=== PATIENT | male | born 1980 | race Caucasian/White ===

== ENCOUNTER → 2018-06-08 14:22 | Outpatient (CLI) | payer OTHER, MEDICAID, SELFPAY ==
--- NOTE | 2018-06-08 | DI.RAD.S_ITS ---
PROCEDURE: XR HAND RT MIN 3V INDICATIONS: RT HAND INJURY, HX OF FRACTURE X 2 TECHNIQUE: 3 views of the hand(s) acquired. COMPARISON: RG, XR HAND 3V RT, 07/14/2006, 14:47. RG, XR HAND 3V RT, 07/11/2004, 14:50. RG, XR HAND 3V RT, 11/25/2006, 14:52. FINDINGS: Bones: No acute fractures or dislocations. Old fourth and fifth metacarpal base fractures/deformity again noted. Carpal bones are normally aligned. No suspicious bony lesions. Soft tissues: No suspicious soft tissue calcifications. Soft tissue swelling. IMPRESSION: No acute fractures or dislocation. Dictated by: Daniella Somers M.D. on 06/08/2018 at 15:35 Approved by: Daniella Somers M.D. on 06/08/2018 at 15:39
== END ==
PROVIDERS: PCP Family Medicine; Visit Provider Family Medicine
DX: S69.91XA Unspecified injury of right wrist, hand and finger(s), initial encounter (principal); Z87.81 Personal history of (healed) traumatic fracture
CPT/HCPCS: 73130

== ENCOUNTER 2018-11-04 10:40 | Emergency (ER) | payer OTHER, MEDICAID, SELFPAY ==
[2018-11-04 11:02] VITALS: BP 162/104; PULSE 97; RESP 14; TEMP 36.4; O2SAT 97; BMI 31.9
--- NOTE | 2018-11-04 11:07 | DI.RAD.S_ITS ---
PROCEDURE: XR FINGER LT MIN 2V INDICATIONS: crush injury TECHNIQUE: AP hand, 2 views of the left second finger(s) acquired. COMPARISON: None. FINDINGS: Bones: No fractures or dislocations. No suspicious bony lesions. Soft tissues: A soft tissue laceration overlies the radial aspect of the left second digit at the level of the optimal phalanx. No unexpected radiopaque foreign bodies. IMPRESSION: Soft tissue laceration. No radiopaque foreign bodies. No underlying bony abnormality. Dictated by: Cary Viera M.D. on 11/04/2018 at 11:28 Approved by: Cary Viera M.D. on 11/04/2018 at 11:28
[2018-11-04] MEDS: TET,DIPH,PERTUSS(ACELL),VAC/PF 0.5 ML SYRINGE IM (13:34)
--- NOTE | 2018-11-04 13:37 | ED.WOUNDLAC ---
HPI - Wound/Laceration <BBII Montes - Last Filed: 11/04/18 21:49> General Chief Complaint: Wound/Laceration Stated Complaint: Left hand laceration Time Seen by Provider: 11/04/18 13:37 Source: patient Mode of arrival: ambulatory Limitations: no limitations History of Present Illness HPI narrative: Healthy 38-year-old male that is a nonsmoker here for complaint of laceration to his left index finger. He was at work and a large piece of metal caught his finger in between another piece of metal causing injury and laceration to the proximal palmar aspect of the left index finger. He denies any other injuries. He does not know his last tetanus shot. He reports swelling to the finger along with the laceration. Bleeding is controlled with pressure. He denies any other injuries or Related Data Allergies Allergy/AdvReac Type Severity Reaction Status Date / Time amoxicillin Allergy Severe Anaphylaxis Verified 11/04/18 11:06 Review of Systems <BIBI Montes - Last Filed: 11/04/18 21:49> Constitutional Denies chills, Denies fever(s), Denies lethargy and Denies weakness Eyes Denies change in vision, Denies eye discharge, Denies irritation and Denies loss of vision ENT Ears, Nose, Mouth, and Throat: Denies change in voice, Denies neck pain and Denies sore throat Cardiovascular Denies chest pain, Denies irregular heart rhythm, Denies lightheadedness, Denies palpitations, Denies dyspnea, Denies dyspnea on exertion and Denies orthopnea Respiratory Denies cough, Denies dyspnea, Denies dyspnea on exertion and Denies wheezing Gastrointestinal Gastrointestinal: Denies abdominal pain, Denies change in bowel habits, Denies diarrhea, Denies nausea and Denies vomiting Genitourinary Denies hematuria, Denies flank pain, Denies urinary incontinence and Denies urinary urgency Musculoskeletal Denies neck pain Comments: Laceration and crush injury left index finger Neurologic Denies confusion, Denies loss of vision and Denies weakness Psychiatric Denies anxiety, Denies confusion, Denies depression, Denies homicidal ideation and Denies suicidal ideation Endocrine Denies palpitations Hematologic/Lymphatic Denies easy bruising Allergic/Immunologic Denies wheezing Exam <BIBI Montes Last Filed: 11/04/18 21:49> Initial Vital Signs Initial Vital Signs: Vital Signs Temperature 97.6 F 11/04/18 11:02 Pulse Rate 97 H 11/04/18 11:02 Respiratory Rate 14 11/04/18 11:02 Blood Pressure 162/104 H 11/04/18 11:02 Pulse Oximetry 97 11/04/18 11:02 Const General: cooperative and well developed Nutritional Appearance: well nourished Orientation: alert, awake, oriented x3 and not confused HENND Head: normocephalic and atraumatic Mouth: oral mucosae normal and moist mucous membranes Eyes Conjunctivae: conjunctivae normal Sclera: sclerae normal Pupils: PERRL EOM: EOM intact bilaterally Resp Effort & Inspection: normal respiratory effort, able to speak in complete sentences, no respiratory distress and no use of accessory muscles Auscultation: clear to auscultation bilaterally, no rales, no rhonchi and no wheezes Cardio Rate: regular rate Rhythm: regular rhythm Heart Sounds: no click, no gallops, no murmurs and no rubs Pulses: normal peripheral pulses Skin General: no rashes or lesions noted, No jaundice and No petechiae Neuro General: alert, oriented x3, gait normal and no focal motor deficits Speech: speech normal Extrem Other: Irregular laceration to the proximal left index finger approximately 4 cm in length. Distal sensation is intact. Distal cap refill less than 2 sec. Patient has full range of motion distally. <Lucila Sagastume DO - Last Filed: 11/07/18 07:42> Initial Vital Signs Initial Vital Signs: Vital Signs Temperature 97.6 F 11/04/18 11:02 Pulse Rate 97 H 11/04/18 11:02 Respiratory Rate 14 11/04/18 11:02 Blood Pressure 162/104 H 11/04/18 11:02 Pulse Oximetry 97 11/04/18 11:02 Procedures <BIBI Montes - Last Filed: 11/04/18 21:49> Laceration Repair Laceration 1: Site: other (Left index finger ) Side (If applicable): left Size (cm): 4 Description: irregular Depth: simple, single layer Local Anesthetic: lidocaine 1% Amount of anesthesia used (mL): 3.5 Pre-repair: wound explored and irrigated extensively Skin layer closed with: nylon Size (cm): 4-0 Number of sutures: 17 Technique: simple, interrupted Course <BIBI Montes - Last Filed: 11/04/18 21:49> Orders Ordered: Discontinued Medications Diphtheria/Tetanus/Acell Pertussis (Adacel) 0.5 ml IM .ONCE ONE Stop: 11/04/18 13:10 Last Admin: 11/04/18 13:34 Dose: 0.5 ml Vital Signs - 8 hr 11/04/18 15:19 Pulse Rate 73 Respiratory Rate 14 Blood Pressure [Right Arm] 136/94 H Pulse Oximetry 100 <Lucila Sagastume DO - Last Filed: 11/07/18 07:42> Orders Ordered: Discontinued Medications Diphtheria/Tetanus/Acell Pertussis (Adacel) 0.5 ml IM .ONCE ONE Stop: 11/04/18 13:10 Last Admin: 11/04/18 13:34 Dose: 0.5 ml Vital Signs - 8 hr 11/04/18 15:19 Pulse Rate 73 Respiratory Rate 14 Blood Pressure [Right Arm] 136/94 H Pulse Oximetry 100 MDM - Wound/Laceration <BIBI Montes - Last Filed: 11/04/18 21:49> Imaging Data Left finger : Radiologist's impression: [place] [address] XRay Report Signed Patient: Orlando Chery MR#: [id number] : 1980 Acct:[id number] Age/Sex: 38 / M Date of Service: 11/04/18 Loc: Accession Number: [id number] Procedure: XR finger LT min 2V Ordering Provider: Lucila Sagastume D.O. PROCEDURE: XR FINGER LT MIN 2V INDICATIONS: crush injury TECHNIQUE: AP hand, 2 views of the left second finger(s) acquired. COMPARISON: None. FINDINGS: Bones: No fractures or dislocations. No suspicious bony lesions. Soft tissues: A soft tissue laceration overlies the radial aspect of the left second digit at the level of the optimal phalanx. No unexpected radiopaque foreign bodies. IMPRESSION: Soft tissue laceration. No radiopaque foreign bodies. No underlying bony abnormality. Dictated by: Cary Viera M.D. on 11/04/2018 at 11:28 Approved by: Cary Viera M.D. on 11/04/2018 at 11:28 [facility] Narrative Medical decision making narrative: X-ray of the left fingers were obtained and shows no fractures or foreign bodies. The laceration was irrigated with 500 of normal saline. Laceration closed with 17 4-0 nylon sutures. Sutures to be removed in 10 days. Splint is applied to the finger to prevent opening of the laceration. Wound dressed with bacitracin dressing. [id number] ibuprofen as needed for discomfort. Follow up with primary care provider. Return emergency room for any worsening symptoms. Discharge Plan Departure Patient Disposition: Home Clinical Impression: Laceration of left index finger Discharge Date/Time: 11/04/18 16:04 Interventions: ED Discharge Assessment Last Done: 11/04/18 15:57 Instructions: DI for Laceration Repair -- Finger Activity Restrictions/Additional Instructions: X-ray of the left index finger was obtained was no fractures or dislocations. No foreign bodies. Laceration was closed with 17 sutures. Keep wound dressing on clean and dry for 36 hr. After this timeframe may remove dressing redressed daily with bacitracin and a dressing until healed. Use [id number] ibuprofen as needed for discomfort. Follow up with her primary care provider. For any worsening symptoms return to the emergency room. Referrals: Varun Orantes MD [Primary Care Provider] - <Lucila Sagastume DO - Last Filed: 11/07/18 07:42> Cosign ED Attending Khurramature Attestation: I was immediately available in the department for consultation. This documentation has been reviewed and I agree with assessment and plan. Supervised by Lucila Sagastume DO
--- NOTE | 2018-11-04 15:16 | ED_ITS ---
HPI - Wound/Laceration <BIBI Montes - Last Filed: 11/04/18 21:49> General Chief Complaint: Wound/Laceration Stated Complaint: Left hand laceration Time Seen by Provider: 11/04/18 13:37 Source: patient Mode of arrival: ambulatory Limitations: no limitations History of Present Illness HPI narrative: Healthy 38-year-old male that is a nonsmoker here for complaint of laceration to his left index finger. He was at work and a large piece of metal caught his finger in between another piece of metal causing injury and laceration to the proximal palmar aspect of the left index finger. He denies any other injuries. He does not know his last tetanus shot. He reports swelling to the finger along with the laceration. Bleeding is controlled with pressure. He denies any other injuries or Related Data Allergies Allergy/AdvReac Type Severity Reaction Status Date / Time amoxicillin Allergy Severe Anaphylaxis Verified 11/04/18 11:06 Review of Systems <BIBI Montes - Last Filed: 11/04/18 21:49> Constitutional Denies chills, Denies fever(s), Denies lethargy and Denies weakness Eyes Denies change in vision, Denies eye discharge, Denies irritation and Denies loss of vision ENT Ears, Nose, Mouth, and Throat: Denies change in voice, Denies neck pain and Denies sore throat Cardiovascular Denies chest pain, Denies irregular heart rhythm, Denies lightheadedness, Denies palpitations, Denies dyspnea, Denies dyspnea on exertion and Denies orthopnea Respiratory Denies cough, Denies dyspnea, Denies dyspnea on exertion and Denies wheezing Gastrointestinal Gastrointestinal: Denies abdominal pain, Denies change in bowel habits, Denies diarrhea, Denies nausea and Denies vomiting Genitourinary Denies hematuria, Denies flank pain, Denies urinary incontinence and Denies urinary urgency Musculoskeletal Denies neck pain Comments: Laceration and crush injury left index finger Neurologic Denies confusion, Denies loss of vision and Denies weakness Psychiatric Denies anxiety, Denies confusion, Denies depression, Denies homicidal ideation and Denies suicidal ideation Endocrine Denies palpitations Hematologic/Lymphatic Denies easy bruising Allergic/Immunologic Denies wheezing Exam <BIBI Montes Last Filed: 11/04/18 21:49> Initial Vital Signs Initial Vital Signs: Vital Signs Temperature 97.6 F 11/04/18 11:02 Pulse Rate 97 H 11/04/18 11:02 Respiratory Rate 14 11/04/18 11:02 Blood Pressure 162/104 H 11/04/18 11:02 Pulse Oximetry 97 11/04/18 11:02 Const General: cooperative and well developed Nutritional Appearance: well nourished Orientation: alert, awake, oriented x3 and not confused HENWV Head: normocephalic and atraumatic Mouth: oral mucosae normal and moist mucous membranes Eyes Conjunctivae: conjunctivae normal Sclera: sclerae normal Pupils: PERRL EOM: EOM intact bilaterally Resp Effort & Inspection: normal respiratory effort, able to speak in complete sentences, no respiratory distress and no use of accessory muscles Auscultation: clear to auscultation bilaterally, no rales, no rhonchi and no wheezes Cardio Rate: regular rate Rhythm: regular rhythm Heart Sounds: no click, no gallops, no murmurs and no rubs Pulses: normal peripheral pulses Skin General: no rashes or lesions noted, No jaundice and No petechiae Neuro General: alert, oriented x3, gait normal and no focal motor deficits Speech: speech normal Extrem Other: Irregular laceration to the proximal left index finger approximately 4 cm in length. Distal sensation is intact. Distal cap refill less than 2 sec. Patient has full range of motion distally. <Lucila Sagastume DO - Last Filed: 11/07/18 07:42> Initial Vital Signs Initial Vital Signs: Vital Signs Temperature 97.6 F 11/04/18 11:02 Pulse Rate 97 H 11/04/18 11:02 Respiratory Rate 14 11/04/18 11:02 Blood Pressure 162/104 H 11/04/18 11:02 Pulse Oximetry 97 11/04/18 11:02 Procedures <BIBI Montes - Last Filed: 11/04/18 21:49> Laceration Repair Laceration 1: Site: other (Left index finger ) Side (If applicable): left Size (cm): 4 Description: irregular Depth: simple, single layer Local Anesthetic: lidocaine 1% Amount of anesthesia used (mL): 3.5 Pre-repair: wound explored and irrigated extensively Skin layer closed with: nylon Size (cm): 4-0 Number of sutures: 17 Technique: simple, interrupted Course <BIBI Montes - Last Filed: 11/04/18 21:49> Orders Ordered: Discontinued Medications Diphtheria/Tetanus/Acell Pertussis (Adacel) 0.5 ml IM .ONCE ONE Stop: 11/04/18 13:10 Last Admin: 11/04/18 13:34 Dose: 0.5 ml Vital Signs - 8 hr 11/04/18 15:19 Pulse Rate 73 Respiratory Rate 14 Blood Pressure [Right Arm] 136/94 H Pulse Oximetry 100 <Lucila Sagastume DO - Last Filed: 11/07/18 07:42> Orders Ordered: Discontinued Medications Diphtheria/Tetanus/Acell Pertussis (Adacel) 0.5 ml IM .ONCE ONE Stop: 11/04/18 13:10 Last Admin: 11/04/18 13:34 Dose: 0.5 ml Vital Signs - 8 hr 11/04/18 15:19 Pulse Rate 73 Respiratory Rate 14 Blood Pressure [Right Arm] 136/94 H Pulse Oximetry 100 MDM - Wound/Laceration <BIBI Montes - Last Filed: 11/04/18 21:49> Imaging Data Left finger : Radiologist's impression: [place] [address] XRay Report Signed Patient: Orlando Chery MR#: [id number] : 1980 Acct:[id number] Age/Sex: 38 / M Date of Service: 11/04/18 Loc: Accession Number: [id number] Procedure: XR finger LT min 2V Ordering Provider: Lucila Sagastume D.O. PROCEDURE: XR FINGER LT MIN 2V INDICATIONS: crush injury TECHNIQUE: AP hand, 2 views of the left second finger(s) acquired. COMPARISON: None. FINDINGS: Bones: No fractures or dislocations. No suspicious bony lesions. Soft tissues: A soft tissue laceration overlies the radial aspect of the left second digit at the level of the optimal phalanx. No unexpected radiopaque foreign bodies. IMPRESSION: Soft tissue laceration. No radiopaque foreign bodies. No underlying bony abnormality. Dictated by: Cary Viera M.D. on 11/04/2018 at 11:28 Approved by: Cary Viera M.D. on 11/04/2018 at 11:28 [facility] Narrative Medical decision making narrative: X-ray of the left fingers were obtained and shows no fractures or foreign bodies. The laceration was irrigated with 500 of normal saline. Laceration closed with 17 4-0 nylon sutures. Sutures to be removed in 10 days. Splint is applied to the finger to prevent opening of the laceration. Wound dressed with bacitracin dressing. [id number] ibuprofen as needed for discomfort. Follow up with primary care provider. Return emergency room for any worsening symptoms. Discharge Plan Departure Patient Disposition: Home Clinical Impression: Laceration of left index finger Discharge Date/Time: 11/04/18 16:04 Interventions: ED Discharge Assessment Last Done: 11/04/18 15:57 Instructions: DI for Laceration Repair -- Finger Activity Restrictions/Additional Instructions: X-ray of the left index finger was obtained was no fractures or dislocations. No foreign bodies. Laceration was closed with 17 sutures. Keep wound dressing on clean and dry for 36 hr. After this timeframe may remove dressing redressed daily with bacitracin and a dressing until healed. Use [id number] ibuprofen as needed for discomfort. Follow up with her primary care provider. For any worsening symptoms return to the emergency room. Referrals: Varun Orantes MD [Primary Care Provider] - <Lucila Sagastume DO - Last Filed: 11/07/18 07:42> Cosign ED Attending Khurramature Attestation: I was immediately available in the department for consultation. This documentation has been reviewed and I agree with assessment and plan. Supervised by Lucila Sagastume DO
[2018-11-04 15:19] VITALS: BP 136/94; PULSE 73; RESP 14; O2SAT 100
== END 2018-11-04 16:04 | disposition home or self-care (01) ==
PROVIDERS: Emergency Provider Nurse Practitioner Family; Family Provider Family Medicine; PCP Family Medicine
DX: S61.211A Laceration without foreign body of left index finger without damage to nail, initial encounter (principal); W26.9XXA Contact with unspecified sharp object(s), initial encounter; Y99.0 Civilian activity done for income or pay
CPT/HCPCS: 12002; 29130; 73140; 90471; 99283; 99284; 90715

== ENCOUNTER → 2020-02-28 12:23 | Outpatient (CLI) | payer OTHER, SELFPAY ==
--- NOTE | 2020-02-28 12:41 | DI.RAD.S_ITS ---
PROCEDURE: XR FINGER LT MIN 2V INDICATIONS: FX FINGER TRAUMA LEFT #4 TECHNIQUE: AP hand, 2 views of the fourth finger(s) acquired. COMPARISON: [facility], , XR FINGER LT MIN 2V, 11/04/2018, 11:12. FINDINGS: Bones: Minimally displaced distal tuft fracture of the distal phalanx of the fourth finger. No other fractures or dislocations. No suspicious bony lesions. Soft tissues: No suspicious soft tissue calcifications. IMPRESSION: Distal tuft distal phalanx fracture of 4th digit Dictated by: Micha Mccabe M.D. on 02/28/2020 at 13:02 Approved by: Micha Mccabe M.D. on 02/28/2020 at 13:04
== END ==
PROVIDERS: Family Provider Family Medicine; PCP Family Medicine; Referring Provider Family Medicine; Visit Provider Family Medicine
DX: S62.635A Displaced fracture of distal phalanx of left ring finger, initial encounter for closed fracture (principal); X58.XXXA Exposure to other specified factors, initial encounter
CPT/HCPCS: 73140

== ENCOUNTER → 2020-08-04 11:11 | Outpatient (CLI) | payer OTHER, SELFPAY ==
[2020-08-04 13:18] LABS: COVID19 -Nasal RAPID Negative (Negative)
== END ==
PROVIDERS: Family Provider Family Medicine; PCP Family Medicine; Referring Provider Family Medicine; Visit Provider Family Medicine
DX: R05 Cough (principal)
CPT/HCPCS: 87635

== ENCOUNTER → 2021-01-30 12:13 | Outpatient (ROUT) | payer OTHER, SELFPAY ==
[2021-01-30 12:34] LABS: COVID19 -Nasal RAPID Negative (Negative)
== END ==
PROVIDERS: Visit Provider Family Medicine
DX: Z20.822 Contact with and (suspected) exposure to COVID-19 (principal)
CPT/HCPCS: 87635

== ENCOUNTER → 2021-07-28 12:36 | Outpatient (ROUT) | payer OTHER, SELFPAY ==
[2021-07-28 14:29] LABS: COVID19 -Nasal RAPID Negative (Negative)
== END ==
PROVIDERS: Visit Provider Family Medicine
DX: Z20.822 Contact with and (suspected) exposure to COVID-19 (principal); R52 Pain, unspecified; J02.9 Acute pharyngitis, unspecified
CPT/HCPCS: 87635

== ENCOUNTER → 2021-08-02 10:04 | Outpatient (CLI) | payer OTHER, SELFPAY ==
[2021-08-02 10:26] LABS: COVID19 -Nasal RAPID POSITIVE (Negative)
== END ==
PROVIDERS: Visit Provider Nurse Practitioner Family
DX: U07.1 COVID-19 (principal)
CPT/HCPCS: 87635

== ENCOUNTER → 2021-08-04 14:40 | Outpatient (CLI) | payer OTHER, SELFPAY ==
--- NOTE | 2021-08-04 | DI.RAD.S_ITS ---
PROCEDURE: XR CHEST 2V INDICATIONS: COUGH, COVID TECHNIQUE: 2 views of the chest were acquired. COMPARISON: None. FINDINGS: Surgical changes and devices: None. Lungs and pleura: Lungs are clear. No pleural effusions or pneumothorax. Mediastinum: Mediastinal contours are normal. Heart size is normal. Bones and chest wall: No suspicious bony abnormalities. Soft tissues appear unremarkable. IMPRESSION: No acute cardiopulmonary process demonstrated radiographically. Dictated by: Reese Martínez M.D. on 08/04/2021 at 15:14 Approved by: Reese Martínez M.D. on 08/04/2021 at 15:14
== END ==
PROVIDERS: PCP Family Medicine; Referring Provider Family Medicine; Visit Provider Family Medicine
DX: U07.1 COVID-19 (principal); R05.9 Cough, unspecified
CPT/HCPCS: 71046

== ENCOUNTER → 2021-12-21 08:33 | Outpatient (CLI) | payer OTHER, SELFPAY ==
--- NOTE | 2021-12-21 | DI.RAD.S_ITS ---
PROCEDURE: XR FINGER RT MIN 2V INDICATIONS: RIGHT THUMB PAIN TECHNIQUE: PA hand, 2 views of the 1st finger(s) acquired. COMPARISON: Located [facility], , XR HAND RT MIN 3V, 06/08/2018, 14:05. FINDINGS: Bones: No fractures or dislocations. No suspicious bony lesions. Soft tissues: No suspicious soft tissue calcifications. IMPRESSION: No definite radiographic abnormality. If pain persists with conservative management, consider cross sectional imaging such as CT or MRI for further assessment. Dictated by: Laureano BRAVO Interpreted: Kimani Escobar MD on 12/21/2021 at 9:13 Transcribed by: LEEANN on 12/21/2021 at 9:15 Approved by: Kimani Escobar M.D. on 12/21/2021 at 10:10
== END ==
PROVIDERS: PCP Family Medicine; Referring Provider Family Medicine; Visit Provider Family Medicine
DX: M79.644 Pain in right finger(s) (principal)
CPT/HCPCS: 73140

== ENCOUNTER 2022-11-04 07:25 | Emergency (ER) | payer OTHER, SELFPAY ==
[2022-11-04] VITALS (11 sets, daily range): BP systolic 121–155; BP diastolic 82–106; PULSE 44–65; RESP 9–33; TEMP 36.4; O2SAT 95–98; BMI 33.4
--- NOTE | 2022-11-04 07:32 | DI.RAD.S_ITS ---
PROCEDURE: XR CHEST 1V INDICATIONS: chest pain TECHNIQUE: One view of the chest was acquired. COMPARISON: None. FINDINGS: Surgical changes and devices: None. Lungs and pleura: Lungs are clear. No pleural effusions or pneumothorax. Mediastinum: Mediastinal contours appear normal. Heart size is normal. Bones and chest wall: No suspicious bony lesions. Overlying soft tissues appear unremarkable. IMPRESSION: No acute cardiopulmonary abnormalities or focal airspace disease. Dictated by: Addy Ojeda M.D. on 11/04/2022 at 8:12 Approved by: Addy Ojeda M.D. on 11/04/2022 at 8:12
--- NOTE | 2022-11-04 07:37 | ED_ITS ---
HPI - Chest Pain General Chief Complaint: Chest Pain Stated Complaint: chest pain t-1 Time Seen by Provider: 11/04/22 07:34 Source: patient Mode of arrival: Ambulatory Limitations: no limitations History of Present Illness HPI narrative: 42-year-old male nonsmoker with noncontributory medical history presents with his and young child in the chief complaint of waxing and waning episodes of burning in his upper chest over the past 24 hours or so. He does not remember exactly what he was doing at its onset and firmly denies any obvious provocation or palliation. The episodes when present RA squeezing and burning type sensation that may last a few minutes and he denies any associated symptoms such as dizziness, weakness or lightheadedness. He is had no nausea, vomiting unexplained diaphoresis or shortness of breath. He denies any recent travel, trauma, change in medications or diet. He denies any history of blood clot or lower extremity pain, swelling or redness. Related Data Allergies Allergy/AdvReac Type Severity Reaction Status Date / Time amoxicillin AdvReac Vomiting Verified 11/04/22 07:29 Penicillins AdvReac Nausea Verified 11/04/22 07:29 Review of Systems Review of Systems Narrative: GENERAL: Denies chills, fatigue, malaise, fever, sweats. HEENT: Denies sinus pain, ear pain, sore throat, difficulty swallowing, dizzine ss. RESPIRATORY: Denies dyspnea, cough, wheezing, hemoptysis, sputum. CARDIOVASCULAR: See HPI GASTROINTESTINAL: See HPI : Denies dysuria, frequency, incontinence, hematuria, urinary retention. MUSCULOSKELETAL: denies weakness, joint pain, or bony pain SKIN: Denies rash, skin lesions, or other NEUROLOGIC: Denies weakness, headache, numbness, change in speech, confusion, seizures, incoordination. PSYCHIATRIC: No concerning psychosocial issues. 12 point review of systems is negative except for those stated above Patient History Social History Smoking Status: Never smoker Smoking Status: Never smoker alcohol intake frequency: holidays/special occasions only Substance Use Type: does not use Exam Narrative Exam Narrative: GENERAL: [42] year old patient appears stated age. Well-developed patient, in mild distress. HEAD: Atraumatic. Normocephalic. EYES: Pupils equal round and reactive. Extraocular motions intact. No scleral icterus. No injection or drainage. ENT: Nose without bleeding, purulent drainage. Throat without erythema, tonsillar hypertrophy or exudate. Airway patent. NECK: Trachea midline. Non tender CARDIOVASCULAR: Regular rate and rhythm without murmurs, gallops, or rubs. RESPIRATORY: Clear to auscultation. Breath sounds equal bilaterally. No wheezes, rales, or rhonchi. GASTROINTESTINAL: Abdomen soft, non-tender, nondistended. EXTREMITIES: No edema or joint tenderness. BACK: Nontender without deformity or crepitance. No flank tenderness. NEURO: AOx3. SKIN: No rash or erythema of visible areas Initial Vital Signs Initial Vital Signs: Vital Signs Temperature 97.5 F L 11/04/22 07:29 Pulse Rate 64 11/04/22 07:29 Respiratory Rate 18 11/04/22 07:29 Blood Pressure 155/106 H 11/04/22 07:29 Pulse Oximetry 97 11/04/22 07:29 Oxygen Delivery Method 11/04/22 07:29 Scores HEART Score Heart Score history: Slightly Suspicious Heart Score EKG: Normal Heart Score Age: < 45 years old Heart Score risk factors: No known risk factors Heart Score troponin: < or = to normal limit Heart Score Total: 0 PERC Score Age greater than or equal to 50 years: No Heart rate greater than or equal to 100 bpm: No Room Air O2 Sat less than 95%: No Unilateral leg swelling: No Recent trauma or surgery: No Hemoptysis: No Prior PE or DVT: No Hormone Use: No Total PERC Score: 0 Course Orders Ordered: Discontinued Medications Aspirin (Aspirin 81 Mg Chew Tab) 324 mg PO NOW ONE Stop: 11/04/22 07:33 Last Admin: 11/04/22 07:58 Dose: 324 mg Documented By: NR Pantoprazole Sodium (Pantoprazole 40 Mg Vial) 40 mg IV NOW ONE Stop: 11/04/22 07:35 Last Admin: 11/04/22 07:58 Dose: 40 mg Documented By: NR Vital Signs Vital signs: Vital Signs - 8 hr 11/04/22 07:29 Temperature 97.5 F L Pulse Rate 64 Respiratory Rate 18 Blood Pressure 155/106 H Pulse Oximetry 97 Oxygen Delivery Method Room Air MDM - Chest Pain Lab Data Result diagrams: 11/04/22 07:43 11/04/22 07:43 Labs: Lab Results 11/04/22 11/04/22 11/04/22 Range/Units 07:43 07:43 07:43 WBC 6.3 (4.5-11.0) X10^3/uL RBC 5.37 (4.5-5.9) X10^6/uL Hgb 16.5 (13.5-17.5) g/dL Hct 48.9 (41-53) % MCV 91.1 (80-100) fL MCH 30.7 (26-34) PG MCHC 33.7 (30-36) % RDW 14.0 (11.6-14.8) % Plt Count 314 (150-400) X10^3/uL Neut % (Auto) 44.8 L (50-75) % Lymph % (Auto) 34.5 (25-40) % [place] % (Auto) 11.1 (3-14) % Eos % (Auto) 8.8 H (2-4) % Baso % (Auto) 0.8 (0-2) % Neut # (Auto) 2800 (4422-1330) /uL Lymph # (Auto) 2200 (4557-7816) /uL [place] # (Auto) 700 (0-900) /uL Eos # (Auto) 600 H (0-450) /uL Baso # (Auto) 0 (0-100) /uL ESR (0-15) MM/HR PT 12.3 (10.1-12.7) SECONDS INR 1.1 (0.9-1.3) APTT 31 (26-36) SECONDS D-Dimer (<500) ng/ml Sodium 143 (137-145) mmol/L Potassium 4.0 (3.4-5.1) mmol/L Chloride 102 (98-107) mmol/L Carbon Dioxide 29 (22-32) mmol/L BUN 12 (9-20) mg/dL Creatinine 1.20 (0.66-1.25) mg/dL Estimated GFR > 60 (>60) mL/min BUN/Creatinine Ratio 10.0 (6-22) Glucose 93 (70-100) mg/dL Calcium 9.4 (8.4-10.2) mg/dL Magnesium 2.0 (1.6-2.3) mg/dL Total Bilirubin 0.8 (0.2-1.3) mg/dL AST 31 (17-59) IU/L ALT 44 (<50) IU/L Alkaline Phosphatase 96 (38-126) U/L Total Creatine Kinase 240 H (55-170) U/L CK-MB (CK-2) 1.30 (<2.37) ng/mL CK-MB (CK-2) Rel Index 0.5 L (1.5-5.0) % Troponin I < 0.012 (0.01-0.034) ng/mL C-Reactive Protein (<1.0) mg/dL Total Protein 8.0 (6.3-8.2) g/dL Albumin 4.5 (3.5-5.0) g/dL Globulin 3.5 (1.7-4.1) g/dL Albumin/Globulin Ratio 1.3 (1.0-2.8) Lipase 90 (23-300) U/L SARS-CoV-2 (PCR) (Negative) 11/04/22 11/04/22 11/04/22 Range/Units 07:43 07:43 07:43 WBC (4.5-11.0) X10^3/uL RBC (4.5-5.9) X10^6/uL Hgb (13.5-17.5) g/dL Hct (41-53) % MCV (80-100) fL MCH (26-34) PG MCHC (30-36) % RDW (11.6-14.8) % Plt Count (150-400) X10^3/uL Neut % (Auto) (50-75) % Lymph % (Auto) (25-40) % [place] % (Auto) (3-14) % Eos % (Auto) (2-4) % Baso % (Auto) (0-2) % Neut # (Auto) (9039-2208) /uL Lymph # (Auto) (1896-0928) /uL Denton # (Auto) (0-900) /uL Eos # (Auto) (0-450) /uL Baso # (Auto) (0-100) /uL ESR 1 (0-15) MM/HR PT (10.1-12.7) SECONDS INR (0.9-1.3) APTT (26-36) SECONDS D-Dimer 342 (<500) ng/ml Sodium (137-145) mmol/L Potassium (3.4-5.1) mmol/L Chloride (98-107) mmol/L Carbon Dioxide (22-32) mmol/L BUN (9-20) mg/dL Creatinine (0.66-1.25) mg/dL Estimated GFR (>60) mL/min BUN/Creatinine Ratio (6-22) Glucose (70-100) mg/dL Calcium (8.4-10.2) mg/dL Magnesium (1.6-2.3) mg/dL Total Bilirubin (0.2-1.3) mg/dL AST (17-59) IU/L ALT (<50) IU/L Alkaline Phosphatase (38-126) U/L Total Creatine Kinase (55-170) U/L CK-MB (CK-2) (<2.37) ng/mL CK-MB (CK-2) Rel Index (1.5-5.0) % Troponin I (0.01-0.034) ng/mL C-Reactive Protein < 0.5 (<1.0) mg/dL Total Protein (6.3-8.2) g/dL Albumin (3.5-5.0) g/dL Globulin (1.7-4.1) g/dL Albumin/Globulin Ratio (1.0-2.8) Lipase (23-300) U/L SARS-CoV-2 (PCR) (Negative) 11/04/22 11/04/22 Range/Units 07:50 09:44 WBC (4.5-11.0) X10^3/uL RBC (4.5-5.9) X10^6/uL Hgb (13.5-17.5) g/dL Hct (41-53) % MCV (80-100) fL MCH (26-34) PG MCHC (30-36) % RDW (11.6-14.8) % Plt Count (150-400) X10^3/uL Neut % (Auto) (50-75) % Lymph % (Auto) (25-40) % [place] % (Auto) (3-14) % Eos % (Auto) (2-4) % Baso % (Auto) (0-2) % Neut # (Auto) (1658-4738) /uL Lymph # (Auto) (0429-2713) /uL [place] # (Auto) (0-900) /uL Eos # (Auto) (0-450) /uL Baso # (Auto) (0-100) /uL ESR (0-15) MM/HR PT (10.1-12.7) SECONDS INR (0.9-1.3) APTT (26-36) SECONDS D-Dimer (<500) ng/ml Sodium (137-145) mmol/L Potassium (3.4-5.1) mmol/L Chloride (98-107) mmol/L Carbon Dioxide (22-32) mmol/L BUN (9-20) mg/dL Creatinine (0.66-1.25) mg/dL Estimated GFR (>60) mL/min BUN/Creatinine Ratio (6-22) Glucose (70-100) mg/dL Calcium (8.4-10.2) mg/dL Magnesium (1.6-2.3) mg/dL Total Bilirubin (0.2-1.3) mg/dL AST (17-59) IU/L ALT (<50) IU/L Alkaline Phosphatase (38-126) U/L Total Creatine Kinase 210 H (55-170) U/L CK-MB (CK-2) 1.09 (<2.37) ng/mL CK-MB (CK-2) Rel Index 0.5 L (1.5-5.0) % Troponin I 0.016 (0.01-0.034) ng/mL C-Reactive Protein (<1.0) mg/dL Total Protein (6.3-8.2) g/dL Albumin (3.5-5.0) g/dL Globulin (1.7-4.1) g/dL Albumin/Globulin Ratio (1.0-2.8) Lipase (23-300) U/L SARS-CoV-2 (PCR) Negative (Negative) ECG Data Interpretation: [0734] EKG is normal sinus rhythm rate [60] and free of any signs of ischemia or ectopy. No ST segmental elevation or depression. No T wave inversions MDM Narrative Medical decision making narrative: [42-year-old male with chest pain radiating to his back] Multiple etiologies for patient's symptoms considered including, but not limited to: [Musculoskeletal, cardiac ischemia, pulmonary embolism, dissection, gallbladder disease, pancreatitis versus other] Labs reviewed and interpreted by myself: No elevation of white blood cells or left shift, no signs of anemia, D-dimer below 500, normal electrolytes, particularly bilirubin, LFTs and lipase as well as troponin x2. Imaging reviewed: No acute process Ischemia considered but thought unlikely given lack of exertional symptoms, troponin negative x2, low heart score and nonischemic EKG, also no diaphoresis, no provocation with exertion, and no vomiting Pulmonary embolism considered, however low wells, PERC is 0, D-dimer less than 500, no indication for advanced imaging GI etiologies including biliary, liver and pancreas thought unlikely given lack of laboratory findings. Dissection considered but thought unlikely given lack of maximal pain at onset, tearing sensation, neurologic symptoms, history of hypertension, no correlation between chest and back pain, they seemed to happen at different times Patient's symptoms improved over duration of stay with above-stated therapies. Findings and discharge diagnosis discussed with patient/family followed by verbalization of understanding Return precautions discussed with patient/family whom verbalize understanding of diagnosis and plan Discharge Plan Departure Patient Disposition: Home Clinical Impression: Atypical chest pain Instructions: DI for Atypical Chest Pain Activity Restrictions/Additional Instructions: *You have been diagnosed with [atypical chest pain. As we discussed your history and physical exam are reassuring and there is no evidence of heart attack, blood clot, gallbladder disease, pneumonia or other specific diagnosis that would require immediate intervention] *What to do: *Please continue to take your regular medications as directed. *Please follow up with your primary care provider in 2-3 days, call for an sim ointment. Let them know you were seen in the Emergency Department and that we ask that you be seen in follow up. We will electronically transmit a record of today's note if your PCP is in our system *Return to Emergency Department if you should have any new, worsening or concerning symptoms, such as [fever greater than 101 F, shaking chills, worsening pain, persistent vomiting or other bothersome symptoms] Referrals: Ramone Bryant MD [Primary Care Provider] - Stand Alone Forms: Patient Portal/API
[2022-11-04 07:51] LABS: Add Manual Diff / Slide Review NO; Basophils Absolute Auto 0 /uL (0-100); Basophils Percent Auto 0.8 % (0-2); Eosinophils Absolute Auto 600 /uL (0-450); Eosinophils Percent Auto 8.8 % (2-4); Hematocrit 48.9 % (41-53); Hemoglobin 16.5 g/dL (13.5-17.5); Lymphocytes Absolute Auto 2200 /uL (1100-4500); Lymphocytes Percent Auto 34.5 % (25-40); Mean Corpuscular HGB Conc 33.7 % (30-36); Mean Corpuscular Hemoglobin 30.7 PG (26-34); Mean Corpuscular Volume 91.1 fL (80-100); Monocytes Absolute Auto 700 /uL (0-900); Monocytes Percent Auto 11.1 % (3-14); Neutrophils Absolute Auto 2800 /uL (1500-7000); Neutrophils Percent Auto 44.8 % (50-75); Platelet Count 314 X10^3/uL (150-400); Red Blood Cell Count 5.37 X10^6/uL (4.5-5.9); White Blood Cell Count 6.3 X10^3/uL (4.5-11.0)
[2022-11-04] MEDS: ASPIRIN 81 MG CHEW TAB 324 MG PO (07:58)
[2022-11-04] MEDS: PANTOPRAZOLE 40 MG VIAL IV (07:58)
[2022-11-04 08:03] LABS: INR 1.1 (0.9-1.3); Prothrombin Time 12.3 SECONDS (10.1-12.7)
[2022-11-04 08:05] LABS: PTT Partial Thromboplastin Tim 31 SECONDS (26-36)
[2022-11-04 08:07] LABS: Alanine Aminotransferase 44 IU/L (<50); Albumin 4.5 g/dL (3.5-5.0); Albumin Globulin Ratio 1.3 (1.0-2.8); Alkaline Phosphatase 96 U/L (38-126); Aspartate Aminotransferase 31 IU/L (17-59); Bilirubin Total 0.8 mg/dL (0.2-1.3); Blood Urea Nitrogen 12 mg/dL (9-20); Calcium 9.4 mg/dL (8.4-10.2); Carbon Dioxide 29 mmol/L (22-32); Chloride 102 mmol/L (98-107); Creatine Kinase 240 U/L (55-170); Estimated Glomerular Filt Rate > 60 mL/min (>60); Globulin 3.5 g/dL (1.7-4.1); Glucose 93 mg/dL (70-100); HEMOLYSIS < 15 (0-50); Lipase 90 U/L (23-300); Sodium 143 mmol/L (137-145)
[2022-11-04 08:13] LABS: D Dimer 342 ng/ml (<500)
[2022-11-04 08:14] LABS: Erythrocyte Sedimentation Rate 1 MM/HR (0-15)
[2022-11-04 08:18] LABS: Troponin I < 0.012 ng/mL (0.01-0.034)
[2022-11-04 08:22] LABS: CKMB % Relative Index 0.5 % (1.5-5.0)
[2022-11-04 08:28] LABS: COVID19 -Nasal RAPID Negative (Negative)
[2022-11-04 08:34] LABS: C-Reactive Protein Quant < 0.5 mg/dL (<1.0)
[2022-11-04 10:06] LABS: Creatine Kinase 210 U/L (55-170)
[2022-11-04 10:19] LABS: Troponin I 0.016 ng/mL (0.01-0.034)
[2022-11-04 10:22] LABS: CKMB % Relative Index 0.5 % (1.5-5.0); Creatine Kinase MB 1.09 ng/mL (<2.37)
== END 2022-11-04 11:44 | disposition home or self-care (01) ==
PROVIDERS: Emergency Provider Emergency Medicine; PCP Family Medicine
DX: R07.89 Other chest pain (principal); Z20.822 Contact with and (suspected) exposure to COVID-19
CPT/HCPCS: 36415; 71045; 80053; 82550; 82553; 83690; 83735; 84484; 85025; 85379; 85610; 85651; 85730; 86140; 87635; 93005; 93010; 96374; 99284; C9803; C9113

== ENCOUNTER → 2022-11-16 12:48 | Outpatient (CLI) | payer OTHER, MEDICAID, SELFPAY ==
--- NOTE | 2022-11-16 12:52 | DI.MRI.S_ITS ---
PROCEDURE: MR ELBOW RT WO CON INDICATIONS: RT BICEPS STRAIN TECHNIQUE: Noncontrast coronal proton density fast spin echo and T2 fast spin echo with fat saturation, axial and sagittal T1 spin echo and T2 fast spin echo with fat saturation through the elbow. COMPARISON: None. FINDINGS: Image quality: Excellent. Lateral structures: The lateral ulnar collateral ligament and radial collateral ligament both appear intact. The overlying common extensor tendon also appears normal. Medial structures: The ulnar collateral ligament appears intact. The overlying common flexor tendon appears normal. The ulnar nerve appears normal in size and signal within the cubital tunnel. Anterior structures: There is high-grade partial-thickness tear of distal biceps tendon at its insertion on proximal radius with up to 2.5 cm proximal retraction of torn tendon fibers, large amount of surrounding edema and fluid. Distal brachialis tendon is intact. A few intact fibers are seen extending along the course of distal biceps tendon. The median and radial neurovascular bundles appear normal; no focal muscle atrophy to suggest nerve impingement. Posterior structures: The conjoint triceps tendon from the long and lateral heads appears intact. The medial head of the triceps tendon also appears normal, with direct muscle insertion onto the olecranon. No olecranon bursal fluid. Bone and cartilage: No bone marrow contusions or fractures. No osteochondral injuries. IMPRESSION: 1. High-grade partial-thickness tear involving distal biceps tendon at its insertion on the proximal radius with up to 2.5 cm proximal retraction of torn tendon fibers and moderate to large amount of surrounding fluid and edema. No full-thickness distal biceps tendon rupture. Distal brachialis tendon is intact. 2. Rest of the elbow tendons and ligaments are intact. 3. No marrow edema. No acute fracture or dislocation. Small joint effusion. Dictated by: Nestor Jose M.D. on 11/16/2022 at 15:34 Approved by: Nestor Jose M.D. on 11/16/2022 at 15:55
== END ==
PROVIDERS: PCP Family Medicine; Referring Provider Family Medicine; Visit Provider Family Medicine
DX: S46.211A Strain of muscle, fascia and tendon of other parts of biceps, right arm, initial encounter (principal); M25.421 Effusion, right elbow
CPT/HCPCS: 73221

== ENCOUNTER → 2023-09-29 09:47 | Outpatient (CLI) | payer OTHER, SELFPAY ==
--- NOTE | 2023-09-29 | DI.RAD.S_ITS ---
PROCEDURE: XR CHEST 2V INDICATIONS: COUGH TECHNIQUE: 2 views of the chest were acquired. COMPARISON: Merged With [facility], CR, XR CHEST 2V, 08/04/2021, 14:48. FINDINGS: Surgical changes and devices: None. Lungs and pleura: Lungs are clear. No pleural effusions or pneumothorax. Mediastinum: Mediastinal contours are normal. Heart size is normal. Bones and chest wall: No suspicious bony abnormalities. Soft tissues appear unremarkable. IMPRESSION: No acute cardiopulmonary abnormality is seen. Dictated by: Armida Mayorga M.D. on 09/29/2023 at 14:37 Approved by: Armida Mayorga M.D. on 09/29/2023 at 14:37
== END ==
LOC: RAD 09:48
PROVIDERS: PCP Family Medicine; Referring Provider Family Medicine; Visit Provider Family Medicine
DX: R05.1 Acute cough (principal)
CPT/HCPCS: 71046

== ENCOUNTER → 2023-12-23 17:10 | Outpatient (CLI) | payer OTHER, SELFPAY ==
--- NOTE | 2023-12-23 | DI.MRI.S_ITS ---
PROCEDURE: MR FOOT RT WO/W CON INDICATIONS: LOCALIZED SWELLING TECHNIQUE: Multiphasic, multisequence MRI of the forefoot was performed, before and after intravenous contrast administration. COMPARISON: [facility] [place], CR, XR FOOT 3+ VIEWS RIGHT, 12/20/2023, 15:14. FINDINGS: Image quality: Excellent. Bones and joints: No suspicious osseous enhancement. No bone marrow contusions or metatarsal stress fractures. The sesamoid bones appear in expected positions, without internal edema. No metatarsophalangeal joint degeneration. No intraosseous lesions. Soft tissues: Focal subcutaneous edema and enhancement are seen at the plantar aspect of the foot inferior to the 5th metatarsal base near the skin marker. The adjacent abductor digiti minimi muscle appears normal. No enhancing soft tissue mass. Focal susceptibility artifact is seen along the skin surface just posterior medial to the area of edema. The visualized plantar foot muscles demonstrate normal signal and bulk. Visualized flexor and extensor tendons appear intact, without tenosynovitis. The distal insertions of the peroneus brevis and longus tendons appear intact. The principal Lisfranc ligament appears intact. No soft tissue ganglion cysts or bursal fluid collections. Sagittal images demonstrate no evidence for plantar plate tears. IMPRESSION: 1. Nonspecific focal subcutaneous edema and enhancement are seen at the plantar lateral aspect of the forefoot. No enhancing soft tissue mass or fluid collection is seen. There is focal magnetic susceptibility artifact just posteromedial to the area of edema that could represent debris in the skin or on the skin surface, which may be incidental. 2. No acute osseous abnormality. No significant ligament or tendon injury is seen. Approved by: Kimani Escobar M.D. on 12/26/2023 at 11:09
== END ==
PROVIDERS: PCP Family Medicine; Referring Provider Podiatrist; Visit Provider Podiatrist
DX: R22.41 Localized swelling, mass and lump, right lower limb (principal)
CPT/HCPCS: 73720; A9579

== ENCOUNTER → 2025-09-09 19:45 | Outpatient (CLI) | payer OTHER, SELFPAY ==
--- NOTE | 2025-09-09 19:47 | DI.MRI.S_ITS ---
PROCEDURE: MR ELBOW LT W CON
== END ==
LOC: MRI 19:46
PROVIDERS: PCP Family Medicine; Referring Provider Family Medicine; Visit Provider Family Medicine
DX: S46.312A Strain of muscle, fascia and tendon of triceps, left arm, initial encounter (principal); S46.212A Strain of muscle, fascia and tendon of other parts of biceps, left arm, initial encounter; S46.202A Unspecified injury of muscle, fascia and tendon of other parts of biceps, left arm, initial encounter; M71.58 Other bursitis, not elsewhere classified, other site
CPT/HCPCS: 73221